=== PATIENT | male | born 1935 | race Caucasian/White ===

== ENCOUNTER 2021-09-28 02:27 | Emergency (ER) | payer MEDICARE, OTHER ==
[~2021-09-28] VITALS: Ht 167.6 cm; Wt 68.0 kg
[~2021-09-28 02:27] MED LIST: ANAPROX PO; APAP650 PO; ASPIRIN EC81 M1 PO; BENEFIBER PO; CARAFATE 11 GM/10 M1 PO; FERROUS SULFAT325 M1; LISINOPRIL; LISINOPRIL-HCT1 EACH PO; LISINOPRIL10 MG PO; LOVENOX SQ; MEN 50 PLUS MU1 EACH PO; MEN'S 50+ ADVA1 EACH PO; MIRALAX255 GM PO; MYLANTA 12 OZ355 M1 PO; NORCO 5-325 TA1 EACH; OMEPRAZOLE PO; OXYCODONE HCL5 M1; PRILOSEC 20 MG20 MG PO; STOOL SOFTENER1 EAC2 PO; TRAVATAN 0.004%5 ML OP; VITAMIN E400 UNIT PO; XALATAN2.5 ML; ZOFRAN4 MG; [UNRECOGNIZED DRUG - OTHER] PO
[2021-09-28 03:23] LABS: URINE BILIRUBIN NEGATIVE (Negative); URINE BLOOD NEGATIVE (Negative); URINE CLARITY CLEAR; URINE COLOR YELLOW; URINE GLUCOSE-RANDOM NEGATIVE (Negative); URINE KETONES 1+ (Negative); URINE LEUKOCYTES-REFLEX NEGATIVE (Negative); URINE NITRITE-REFLEX NEGATIVE (Negative); URINE PROTEIN NEGATIVE (Negative); URINE SPECIFIC GRAVITY 1.025 (1.005-1.030); URINE UROBILINOGEN 0.2 E.U./dl (0.2-1.0)
[2021-09-28 03:23] LABS: ABSOLUTE LYMPHOCYTES 0.9 thou/uL (0.8-5.3); ABSOLUTE MONOCYTES 1.1 thou/uL (0.0-1.2); ABSOLUTE NEUTROPHILS 5.5 thou/uL (1.6-8.1); BASOPHILS 0.4 %; HEMATOCRIT 41.5 % (42.0-52.0); HEMOGLOBIN 13.6 gm/dL (14.0-18.0); LYMPHOCYTES 11.9 %; MCH 31.5 pg (26.0-34.0); MCHC 32.8 g/dL (28.0-37.0); MCV 96.1 fL (80.0-100.0); MONOCYTES 14.1 %; MPV 9.8 fl. (7.2-11.1); NUCLEATED RBCS 0 /100WBC; PLATELET COUNT* 202 thou/uL (150-400); POLYS 73.6 %; RBC 4.32 mil/uL (4.50-6.00); RDW-CV 13.4 % (10.5-14.5); WBC 7.5 thou/uL (4.0-11.0)
[2021-09-28 03:39] LABS: CALCIUM 8.3 mg/dL (8.5-10.1); CREATININE 1.2 mg/dL (0.6-1.3); POTASSIUM 3.7 mmol/L (3.5-5.1)
[2021-09-28 03:44] LABS: ALBUMIN 3.4 g/dL (3.4-5.0); TOTAL BILIRUBIN 0.5 mg/dL (<0.1-1.0); TOTAL PROTEIN 6.7 g/dL (6.4-8.2)
[2021-09-28 06:19] VITALS: BP 101/47
--- NOTE | 2021-09-28 09:44 | EKG ---
[place] [address] ELECTROCARDIOGRAM REPORT Name: AGNES MATTHEWS [facility] [id number] Admission: 09/28/21 Attend Phys: Discharge: 09/28/21 Date of : 39 Date of Service: 09/28/21 0359 Report #: [id number] THIS REPORT FOR: //name// [facility] ED Test Date: 2021-09-28 Test Time: 03:59:36 Pat Name: AGNES MATTHEWS Department: Room: Gender: Supervisor [employer]: [facility] : 1935 Requested By: Usha Ayala Order Number: [id number] MD: Robbie Cox Measurements Intervals [place] Rate: 90 P: 30 CO: 144 QRS: -11 QRSD: 102 T: 4 QT: 375 QTc: 459 Interpretive Statements Sinus rhythm Compared to ECG 10/10/2016 15:05:00 No significant changes Electronically Signed On 09-28-2021 9:44:34 [employer] by Robbie Cox [email or web address] <ELECTRONICALLY SIGNED> By: Robbie Cox MD, [facility] 09/28/21 0944 0359 0359 Robbie Cox MD, FAC /EPI
== END 2021-09-28 06:19 | disposition home or self-care (01) ==
LOC: M.ERS 02:27
PROVIDERS: Personal Emergency Response Attendant
DX: K44.9 Diaphragmatic hernia without obstruction or gangrene (principal); K21.9 Gastro-esophageal reflux disease without esophagitis; I10 Essential (primary) hypertension; Z90.49 Acquired absence of other specified parts of digestive tract; Z98.890 Other specified postprocedural states; Z79.82 Long term (current) use of aspirin; Z79.899 Other long term (current) drug therapy; Z87.891 Personal history of nicotine dependence